=== PATIENT | male | born 1995 | race Caucasian/White ===

== ENCOUNTER 2019-07-10 01:53 | Emergency (ER) | payer OTHER ==
[~2019-07-10] VITALS: Ht 182.9 cm; Wt 70.3 kg
[2019-07-10 01:54] VITALS: BP 130/81
[2019-07-10] MEDS ORDERED: CLEOCIN HCL150 MG PO (07:24)
[2019-07-10] MEDS ORDERED: BACITRACIN28.4 G1 TOP (07:24)
== END 2019-07-10 02:16 | disposition left against medical advice (07) ==
LOC: ER 01:53
DX: S91.311A Laceration without foreign body, right foot, initial encounter (principal); Z88.0 Allergy status to penicillin; W25.XXXA Contact with sharp glass, initial encounter; Y93.89 Activity, other specified; Y92.89 Other specified places as the place of occurrence of the external cause; Y99.8 Other external cause status

== ENCOUNTER 2019-07-10 06:22 | Emergency (ER) | payer OTHER ==
[~2019-07-10] VITALS: Ht 182.9 cm; Wt 72.6 kg
[2019-07-10 06:28] VITALS: BP 137/87
[2019-07-10] MEDS ORDERED: BACITRACIN28.4 G1 TOP (07:24)
[2019-07-10] MEDS ORDERED: CLEOCIN HCL150 MG PO (07:24)
== END 2019-07-10 07:30 | disposition home or self-care (01) ==
LOC: ER 06:22
DX: S91.311A Laceration without foreign body, right foot, initial encounter (principal); Z88.0 Allergy status to penicillin; W25.XXXA Contact with sharp glass, initial encounter; Y93.89 Activity, other specified; Y92.89 Other specified places as the place of occurrence of the external cause; Y99.8 Other external cause status